=== PATIENT | male | born 1965 | race Caucasian/White ===

== ENCOUNTER → 2017-04-04 | Outpatient (CLI) | payer OTHER ==
[2015-09-15 18:20] VITALS: BP 144/89
[~2017-04-04] MED LIST: BUPR300T3 PO; LORA2TAB PO; SIMV20TA3 PO; VERA240C2 PO
--- NOTE | 2017-04-04 10:47 | KCIC ---
Complete abdominal ultrasound dated 04/04/2017. No comparison available. Clinical indication: Abdominal pain. FINDINGS: Liver is of diffuse increased echogenicity. No apparent hepatic mass. Biliary tree normal in caliber. The common bile duct measures 4 mm. Gallbladder normal in size and echogenicity. No gallbladder wall thickening or pericholecystic fluid. No gallstones are seen. Right kidney measures 10.9 cm in length. Left kidney measures 11.0 cm in length. No hydronephrosis. Spleen is homogeneous in echogenicity and measures 9.6 cm longitudinal. Pancreas aorta and IVC not well evaluated. No abdominal aortic aneurysm. No significant ascites. IMPRESSION: 1. No acute sonographic abnormality. 2. Hepatic steatosis. Electronically signed by: Phan Oconnor MD (04/04/2017 10:44 AM) [id number]
== END | disposition home or self-care (01) ==
LOC: KCIC US 08:16
PROVIDERS: ATTEND Family Medicine
DX: K76.0 Fatty (change of) liver, not elsewhere classified (principal)
CPT/HCPCS: 76700

== ENCOUNTER → 2019-02-04 | Outpatient (CLI) | payer OTHER ==
[2015-09-15 18:20] VITALS: BP 144/89
[~2019-02-04] MED LIST changes: +SIMV20TA18 PO; -SIMV20TA3 PO
--- NOTE | 2019-02-04 12:49 | KCIC ---
EXAM: Bilateral knees, 3 views. HISTORY: Pain. COMPARISON: None. FINDINGS: 3 views of both knees are obtained. There is no fracture, dislocation or subluxation. No joint effusion is seen. IMPRESSION: No acute osseous finding. Electronically signed by: Aliza Rivers MD (02/04/2019 12:46 PM) [facility]
== END | disposition home or self-care (01) ==
LOC: KCIC 10:57
PROVIDERS: ATTEND Family Medicine
DX: M17.0 Bilateral primary osteoarthritis of knee (principal); M25.562 Pain in left knee; M25.561 Pain in right knee
CPT/HCPCS: 73562

== ENCOUNTER → 2019-02-24 | Outpatient (CLI) | payer OTHER ==
[2015-09-15 18:20] VITALS: BP 144/89
[~2019-02-24] MED LIST changes: +ALBUTEROL SULFATE 2.5 MG/3 ML NEBU. NEB ONE; -SIMV20TA18 PO; +SIMV20TA3 PO
== END | disposition home or self-care (01) ==
LOC: PF 07:58
PROVIDERS: ATTEND Anesthesiology Pain Medicine
DX: Z02.71 Encounter for disability determination (principal); J44.9 Chronic obstructive pulmonary disease, unspecified; F17.210 Nicotine dependence, cigarettes, uncomplicated
CPT/HCPCS: 94060; 94640; J7613